=== PATIENT | female | born 1950 | race Two or more races ===

== ENCOUNTER 2017-03-17 08:55 | Day surgery (SDC) | payer OTHER ==
[~2017-03-17] VITALS: Ht 167.6 cm; Wt 62.7 kg
[~2017-03-17 08:55] MED LIST: AMLO5TAB4; BENA40TA54; GLIP-95; METF1000
[2017-03-17] MEDS ORDERED: METOPROLOL (09:57)
[2017-03-17] MEDS ORDERED: PRAVASTATIN (09:57)
[2017-03-17 10:00] VITALS: Ht 167.6 cm; Wt 62.7 kg
[2017-03-17 10:36] VITALS: BP 139/62; PULSE 56; RESP 19
[2017-03-17] MEDS ORDERED: FENTAnyl 50 MCG/ML VIAL ONE (11:29)
[2017-03-17] MEDS ORDERED: MIDAZOLAM 1 MG/ML 2 ML INJ ONE (11:29)
[2017-03-17 11:33] VITALS: BP 110/56; RESP 20
--- NOTE | 2017-03-17 11:46 | GILP ---
DATE OF PROCEDURE: NAME OF PROCEDURES: 1. Esophagogastroduodenoscopy and biopsy. 2. Colonoscopy and biopsy. SURGEON: Daniel Mejia MD PREOPERATIVE DIAGNOSES: 1. Abdominal pain. 2. Change in the bowel habit. 3. Screening colonoscopy. POSTOPERATIVE DIAGNOSES: 1. Gastritis with erosions. 2. Gastric mucosal biopsies were taken for Helicobacter pylori test. 3. Colonoscopy all the way to the cecum. 4. Small transverse colon polyp was removed using the biopsy forceps. 5. Internal hemorrhoids. INDICATION FOR THE PROCEDURE: Ms. Glenny Heard is a 67-year-old female patient who had upp er abdominal pain not responding to therapy. She also noticed a change in the bowel habit. She nev er had screening colonoscopy, so the patient was scheduled for endoscopy and colonoscopy for further evaluation. The procedures and possible complications are well explained to the patient. The patient understood and consented to the procedure. DESCRIPTION OF PROCEDURE: Under the influence of fentanyl and Versed, the gastroscope was carefully introduced into the esophagus and under direct vision, it was advanced to the stomach and through t he pylorus into the duodenal bulb and descending duodenum. FINDINGS: ESOPHAGUS: The mucosa was normal. STOMACH: The patient had gastritis with erosions. Gastric mucosal biopsies were taken for H pylori test. DUODENUM: Normal. The colonoscope was carefully introduced in the rectum and under direct vision, it was advanced all the way to the cecum. FINDINGS: The patient had a small transverse colon polyp and it was removed using the biopsy forcep s. She was noted to have internal hemorrhoids. She tolerated the procedures very well and there was no complication from the procedure. At the end of the procedures, she was awake with stable vital signs and she was discharged home to the care of her family. IMPRESSION: 1. Gastritis with erosions. 2. Gastric mucosal biopsies were taken for Helicobacter pylori test. 3. Colonoscopy all the way to the cecum. 4. Transverse colon polyp was removed using the biopsy forceps. 5. Internal hemorrhoids. PLAN: 1. Omeprazole 40 mg p.o. every morning. 2. Colace 100 mg p.o. b.i.d. 3. High-fiber diet. 4. Await histopathology reports. 5. Next screening colonoscopy in 10 years. Dictated By: DANIEL ROLDAN/MAXIMILIAN Conf#: [id number] DID#: [id number]
== END 2017-03-17 15:12 | disposition home or self-care (01) ==
LOC: GIL 08:55
PROVIDERS: ATTEND Internal Medicine Gastroenterology
DX: Z12.11 Encounter for screening for malignant neoplasm of colon (principal); D12.3 Benign neoplasm of transverse colon; K29.60 Other gastritis without bleeding; K64.8 Other hemorrhoids; I10 Essential (primary) hypertension; E11.9 Type 2 diabetes mellitus without complications
CPT/HCPCS: 43239; 45380; 82962; 87081; 88305; J2250; J3010

== ENCOUNTER 2018-03-01 08:44 | Emergency (ER) | END 2018-03-01 11:28 | disposition home or self-care (01) ==

== ENCOUNTER 2019-03-28 15:52 | Emergency (ER) | payer OTHER ==
[~2019-03-28] VITALS: Ht 160 cm; Wt 68.7 kg
[~2019-03-28 15:52] MED LIST changes: +ALBU8.5H8 INH; +BENZ-6 PO; +CIPR500T4 PO; -GLIP-95; -METF1000; +METF100010; +METOPROLOL; +PRAVASTATIN
[2019-03-28 15:58] VITALS: Ht 160 cm; Wt 68.7 kg
[2019-03-28] MEDS ORDERED: KETOROLAC 30 MG INJ IM STA (16:44)
--- NOTE | 2019-03-28 16:52 | ERD ---
ER Documentation Chief Complaint Chief Complaint L back pain, upper body pain, tired X 3 days, recently had flu HPI 69-year-old female with past medical history of hypertension, diabetes type 2, hyperlipidemia, asthma who presents with complaint of left upper back pain and headache. Patient reports her back pain localized to left upper back and lower scapular border, she denies history of recent fall or trauma, previous issues with back pain. Headache described as frontal type headache with no associated nausea, vomiting, blurry vision, hearing difficulties, dizziness. States she recently had a bout of the flu think she still recovering from such. Has had mild intermittent dry cough otherwise denies chest pain, shortness of breath, dyspnea on exertion. States she been having some continued vaginal itching, recently treated for UTI and completed course of antibiotic yesterday. Has noticed scant whitish vaginal discharge but denies any vaginal bleeding. She otherwise is without complaint denying fevers, chills, sick contacts, urinary or bowel incontinence, lower extremity or upper extremity weakness or paresthesias. ROS All systems reviewed and are negative except as per history of present illness. Medications Home Meds Active Scripts Clotrimazole* (Clotrimazole* AF) 1% - 30 Gm Cream.gm., 1 APPLIC TOP BID for 7 Days, TUB Prov:JUAN M YU-C 03/28/19 Naproxen* (Naprosyn*) 500 Mg Tablet, 500 MG PO BID PRN for PAIN AND/OR INFLAMMATION, #30 TAB Prov:JUAN M YU-C 03/28/19 Benzonatate* (Tessalon Perle*) 100 Mg Capsule, 100 MG PO Q8H PRN for COUGH, #20 CAP Prov:RAMANDEEP HIDALGO F 03/01/18 Albuterol Sulfate* (Proair HFA*) 8.5 Gm Hfa.aer.ad, 2 PUFF INH Q4H PRN for WHEEZING AND SOB, #1 INHALER Prov:PASILARAMANDEEP LEDESMA F 03/01/18 Ciprofloxacin Hcl* (Ciprofloxacin Hcl*) 500 Mg Tablet, 500 MG PO BID for 7 Days, TAB Prov:PASRAMANDEEP LUNDBERG F 03/01/18 Reported Medications [Pravastatin] No Conflict Check 03/17/17 [Metoprolol] No Conflict Check 03/17/17 Benazepril Hcl* (Lotensin*) 40 Mg Tablet, HS 10/14/11 Metformin Hcl* (Metformin Hcl*) 1,000 Mg Tablet, BID 07/19/11 Amlodipine Besylate* (Norvasc*) 5 Mg Tablet, DAILY 07/19/11 Allergies Allergies: Coded Allergies: Penicillins (Verified Allergy, Severe, RASH, 03/17/17) PMhx/Soc History of Surgery: No Anesthesia Reaction: No Hx Neurological Disorder: No Hx Respiratory Disorders: No Hx Cardiac Disorders: No Hx Psychiatric Problems: No Hx Miscellaneous Medical Probl: No Hx Alcohol Use: No Hx Substance Use: No Hx Tobacco Use: No FmHx Family History: diabetes Physical Exam Vitals Vital Signs Date Temp Pulse Resp B/P (MAP) Pulse Ox O2 O2 Flow FiO2 Time Delivery Rate 03/28/19 98.6 74 18 170/66 95 15:58 (100) Physical Exam I have reviewed the triage vital signs. Const: Well nourished, well developed, appears stated age Eyes: PERRL, no conjunctival injection HENT: NCAT, Neck supple without meningismus CV: RRR, Warm, well-perfused extremities RESP: CTAB, Unlabored respiratory effort, no adventitious breath sounds GI: soft, non-tender, non-distended, no masses MSK: No gross deformities appreciated, no chest wall tenderness, no tenderness to bilateral scapula, no evidence of trauma, no rash, full range of motion to bilateral upper extremities, 5 out of 5 strength throughout bilateral upper extremity, bilateral handgrip equal strength Skin: Warm, dry. No rashes Neuro: grossly non focal Psych: Appropriate mood and affect. Results 24 hrs Laboratory Tests Test 03/28/19 17:07 Urine Color STRAW Urine Clarity CLEAR Urine pH 7.0 Urine Specific [place] 1.009 Urine Ketones NEGATIVE mg/dL Urine Nitrite NEGATIVE mg/dL Urine Bilirubin NEGATIVE mg/dL Urine Urobilinogen NEGATIVE mg/dL Urine Leukocyte Esterase TRACE Brandi/ul Urine Microscopic RBC 1 /HPF Urine Microscopic WBC 4 /HPF Urine Bacteria FEW /HPF Urine Hemoglobin NEGATIVE mg/dL Urine Glucose 3+ mg/dL Urine Total Protein NEGATIVE mg/dl Current Medications Medications Dose Sig/Celsa Start Time Status Last (Trade) Ordered Route PRN Stop Time Admin Dose Reason Admin 10 mg ONCE ONCE 03/28/19 DC 03/28/19 Dexamethasone IM 17:00 17:04 (Decadron) 03/28/19 17:01 Ketorolac 30 mg ONCE STAT 03/28/19 DC 03/28/19 Tromethamine IM 16:44 17:04 (Toradol) 03/28/19 16:45 Procedures/MDM 69-year-old female with complaint of upper back pain and headache. Recently recovering from flulike symptoms. I have low suspicion for acute emergent process for her complaints warranting further emergent care or work-up at this time. Low suspicion for acute cord compression or cauda equina at this time, given presentation and symptoms, including epidural abscess or hematoma. Patient has no history of malignancy, active or distant history. Patient has no unexplained weight loss. No recent fevers, rigors, malaise, or recent infection. No history of IVDU or skin-popping. Patient does not have any history concerning for saddle anesthesia/perianal sensory loss or complaining of decreased rectal tone. Patient does not have urinary retention or inability to control urine from overflow. Patient has no tenderness overlying spinous process. Patient has no focal weakness on examination. Given exam and history, low suspicion for cord compression, cauda equina, epidural abscess/hematoma. Distally neurovascularly intact. Query likely musculoskeletal component. Discussed pain control,and follow up with PMD. Cautious return precautions discussed w/ full understanding ED course: Toradol, Decadron single dose, will discharge with appropriate pain medications, will defer use of steroids given diabetes history at this time, PMD follow-up EKG: Rate/Rhythm: Normal Sinus Rhythm QRS, ST, T-waves: No changes consistent w/ acute ischemia Impression: No evidence of ischemia or arrhythmia Read by attending of record. DISPOSITION PLAN: We discussed follow up with the patient's primary care doctor within 24 to 48 hours. Patient counseled regarding my diagnostic impression and care plan. Prior to discharge all questions answered. Pt agrees with treatment plan and understands strict return precautions. Precautionary instructions provided including instructions to return to the ER if not improving or for any worsening or changing symptoms or concerns. Disclaimer: Inadvertent spelling and grammatical errors are likely due to EHR/dictation software use and do not reflect on the overall quality of patient care. Also, please note that the electronic time recorded on this note does not necessarily reflect the actual time of the patient encounter. Departure Diagnosis: Primary Impression: Back pain Condition: Stable Patient Instructions: Back Pain (Acute Or Chronic), Headache, Unspecified Additional Instructions: Call your primary care doctor TOMORROW for an appointment during the next 2-3 days.See the doctor sooner or return here if your condition worsens before your appointment time. JUAN M YU PA-C Mar 28, 2019 16:52
[2019-03-28] MEDS ORDERED: DEXAMETHASONE 10 MG/ML 1 ML INJ IM ONE (17:00)
[2019-03-28] MEDS ORDERED: NAPR-985 PO (17:09)
[2019-03-28] MEDS ORDERED: CLOT30CR24 TOP (17:28)
[2019-03-28 17:37] VITALS: BP 128/60; PULSE 64; RESP 18
== END 2019-03-28 17:37 | disposition home or self-care (01) ==
LOC: FTE 15:52
DX: M54.6 Pain in thoracic spine (principal); E11.9 Type 2 diabetes mellitus without complications; I10 Essential (primary) hypertension; J45.909 Unspecified asthma, uncomplicated; Z79.84 Long term (current) use of oral hypoglycemic drugs
CPT/HCPCS: 81001; 93005; 96372; 99284; J1100; J1885

== ENCOUNTER 2019-06-06 17:33 | Emergency (ER) | payer OTHER ==
[~2019-06-06] VITALS: Ht 160 cm; Wt 78.0 kg
[~2019-06-06 17:33] MED LIST changes: +ALBU18HF INHALATION; +CLOT30CR24 TOP; +GUAI5SYR2 PO; +NAPR-985 PO
[2019-06-06 17:39] VITALS: Ht 160 cm; Wt 78.0 kg
[2019-06-06] MEDS ORDERED: IPRATROPIUM (NEB) 0.5 MG/2.5 ML AMP NEB STA (18:36)
[2019-06-06] MEDS ORDERED: ALBUTEROL 0.5% (NEB) 2.5 MG/0.5 ML AMP INH STA (18:36)
[2019-06-06] MEDS ORDERED: SOD CHLORIDE 0.9% 1,000 ML IV STA (18:36)
[2019-06-06 20:11] VITALS: BP 157/71; PULSE 88; RESP 18
== END 2019-06-06 20:12 | disposition home or self-care (01) ==
LOC: FTE 17:33
DX: J45.40 Moderate persistent asthma, uncomplicated (principal); I10 Essential (primary) hypertension; E11.9 Type 2 diabetes mellitus without complications; Z79.84 Long term (current) use of oral hypoglycemic drugs
CPT/HCPCS: 36415; 71045; 80048; 84484; 85025; 93005; 94644; 99285; J7030